=== PATIENT | female | born 1965 | race Caucasian/White ===

== ENCOUNTER → 2018-02-14 | Outpatient (CLI) | payer OTHER ==
[~2018-02-14] MED LIST: REGADENOSON 0.4 MG/5 ML SYR IV ONE
== END ==
LOC: NM 11:03
PROVIDERS: ATTEND Internal Medicine Cardiovascular Disease
DX: R07.9 Chest pain, unspecified (principal)
CPT/HCPCS: 78452; A9502; 93017

== ENCOUNTER 2019-05-22 07:25 | Observation (INO) | payer OTHER ==
--- NOTE | 2019-05-21 14:02 | Diagnostic Imaging Report ---
Chest, 2 views, 05/21/2019. History: Preop, cervical spine surgery. Comparison: None available. Findings: The cardiomediastinal silhouette and pulmonary vasculature are within normal limits. The lungs are clear without evidence of consolidation or pleural effusion. Degenerative changes are noted in the thoracic spine. There are no acute osseous or soft tissue abnormalities. Impression: No acute cardiopulmonary abnormality. Signed by: Robert Bazan on 05/21/2019 1:59 PM
[2019-05-21 14:17] LABS: BASOPHILS % 0.3 % (0.0-1.0); EOSINOPHILS # (AUTO) 0.1 (0.0-0.4); EOSINOPHILS % 1.2 % (0.0-6.0); HEMATOCRIT 47.9 % (34.2-44.1); HEMOGLOBIN 15.4 g/dL (12.0-16.0); INR 0.85; LYMPHOCYTES # (AUTO) 2.5 (1.0-3.2); LYMPHOCYTES % 23.3 % (18.0-39.1); MEAN CORPUSCULAR HEMOGLOBIN 30.9 pg (28-32); MEAN CORPUSCULAR HGB CONC 32.2 g/dL (31-35); MONOCYTES # (AUTO) 0.6 (0.2-0.8); MONOCYTES % 5.4 % (4.4-11.3); NEUTROPHILS # (AUTO) 7.5 (2.1-6.9); NEUTROPHILS % 69.3 % (38.7-80.0); PARTIAL THROMBOPLASTIN TIME 23.5 seconds (23.8-35.5); PLATELET COUNT 226 x10e3/uL (140-360); PROTHROMBIN TIME 12.1 seconds (11.9-14.5); RED BLOOD COUNT 4.99 x10e6/uL (3.6-5.1); RED CELL DISTRIBUTION WIDTH 13.3 % (11.7-14.4)
[2019-05-21 14:22] LABS: BLOOD UREA NITROGEN 12 mg/dL (7-26); BUN/CREATININE RATIO 15 (6-25); CARBON DIOXIDE 28 mmol/L (22-29); CHLORIDE 99 mmol/L (98-107); CREATININE, SERUM 0.78 mg/dL (0.57-1.11); EST GLOMERULAR FILTRATION RATE > 60 ML/MIN (60-); GLUCOSE 255 mg/dL (74-118); SODIUM 137 mmol/L (136-145)
[~2019-05-22] VITALS: Ht 160 cm; Wt 116.7 kg
[~2019-05-22 07:25] MED LIST changes: +ETODOLAC500 M1 PO; +GLIMEPIRIDE2 MG PO; +MICARDIS40 MG PO; +PANTOPRAZOLE SO40 MG PO; -REGADENOSON 0.4 MG/5 ML SYR IV ONE; +TYLENOL WITH C1 EACH PO; +ULTRACET TABLE1 EACH PO; +ZOFRAN4 MG SL
[2019-05-22] MEDS ORDERED: THROMBIN FOR SOLN 5,000 UNIT VIAL ONE (07:50)
[2019-05-22] MEDS ORDERED: BUPIVACAINE 0.5%/EPI 30 ML SDV INJ ONE (07:50)
[2019-05-22] MEDS ORDERED: BACITRACIN 50,000 UNIT VIAL ONE (07:51)
[2019-05-22] MEDS ORDERED: VANCOMYCIN 1GM/NS 250 ML 250 ML ONE (08:07)
[2019-05-22] MEDS ORDERED: IBUPROFEN 800MG/ 250ML 250 ML IV ONE (09:23)
[2019-05-22] MEDS ORDERED: SUGAMMADEX SODIUM 200 MG/2 ML VIAL IV ONE (10:43)
[2019-05-22] MEDS ORDERED: VANCOMYCIN 1GM/NS 250 ML 250 ML IV SCH (11:00)
[2019-05-22] MEDS ORDERED: PROMETHAZINE HCL (IM) 25 MG/ML VIAL IM PRN (11:00)
[2019-05-22] MEDS ORDERED: ACETAMINOPHEN 325 MG TAB PO PRN (11:00)
[2019-05-22] MEDS ORDERED: TRAMADOL/APAP 37.5MG-325MG TAB PO PRN (11:00)
[2019-05-22] MEDS ORDERED: HYDROMORPHONE 2MG/ML 2 MG/ML ML IV PRN (11:00)
[2019-05-22] MEDS ORDERED: MORPHINE SULFATE 5 MG/ML VIAL IM PRN (11:00)
[2019-05-22] MEDS ORDERED: CEPACOL SORE THROAT LOZENGES PO PRN (11:00)
[2019-05-22] MEDS ORDERED: CARISOPRODOL 350 MG TAB PO PRN (11:00)
[2019-05-22] MEDS ORDERED: MAGNESIUM/ALUMINUM/SIMETHICONE 30 ML UDC PO PRN (11:00)
[2019-05-22] MEDS ORDERED: ONDANSETRON HCL INJ 2MG/ML 2ML 2 MG/ML VIAL IV PRN (11:00)
[2019-05-22] MEDS ORDERED: MEPERIDINE HCL INJ 25 MG/ML VIAL ONE (11:14)
[2019-05-22] MEDS ORDERED: FENTANYL CITRATE/PF 100MCG/2 ML INJ ONE ×2 (11:14→18:14)
--- NOTE | 2019-05-22 12:00 | NUR ---
PT TO THE FLOOR FROM PACU. VITALS WNL. PT DENIES NEEDS AT THIS TIME.
[2019-05-22 12:30] VITALS: BP 126/55
[2019-05-22] MEDS: LACTATED RINGER'S 1,000 ML IV SCH ×2 (12:38→18:34)
[2019-05-22] MEDS: PANTOPRAZOLE SOD 40 MG TABEC PO SCH (14:37)
[2019-05-22 15:04] VITALS: BP 148/94
[2019-05-22] MEDS ORDERED: LIDOCAINE HCL 2% LOCAL INJ 5 ML SDV VIAL INJ ONE (17:59)
[2019-05-22] MEDS ORDERED: ROCURONIUM BROMIDE 10 MG/ML 5ML VIAL ONE (17:59)
[2019-05-22] MEDS ORDERED: SEVOFLURANE INHAL SOLN 250 ML PEN BTL ONE (17:59)
[2019-05-22] MEDS ORDERED: DEXAMETHASONE SOD PHOS INJ 4 MG/ML VIAL ONE (17:59)
[2019-05-22] MEDS ORDERED: GLYCOPYRROLATE INJ 0.2 MG/ML VIAL ONE (17:59)
[2019-05-22] MEDS ORDERED: NEOSTIGMINE 1 MG/ML 10ML VIAL ONE (17:59)
[2019-05-22] MEDS ORDERED: PROPOFOL IV EMULSION 10 MG/ML 20 ML VIAL ONE (17:59)
[2019-05-22] MEDS ORDERED: ONDANSETRON HCL INJ 2MG/ML 2ML 2 MG/ML VIAL ONE (17:59)
--- NOTE | 2019-05-22 18:06 | Operative Report ---
DATE OF PROCEDURE: 05/22/2019 SURGEON: Aldo Reed MD PREOPERATIVE DIAGNOSES: C5-6 and C6-C7 spondylosis with radiculopathy, M50.120. POSTOPERATIVE DIAGNOSES: C5-6 and C6-C7 spondylosis with radiculopathy, M50.120. PROCEDURES: 1. C5-6 anterior cervical diskectomy and microsurgical osteophyte resection and allograft fusion, 59809. 2. C6-7 anterior cervical diskectomy and microsurgical osteophyte resection, allograft fusion, 38298. 3. Preparation of tricortical iliac crest allograft, 02132. 4. C5-6 and C6-7 plating with Synthes CSLP plate, [id number]. ANESTHESIA: General. INDICATIONS: The patient is a 53-year-old woman, who presents with C5-6 and C6-7 spondylosis with neck pain and left-sided cervical radiculopathy. She was taken to the surgery for 2-level anterior cervical decompression and fusion. PROCEDURE IN DETAIL: After induction of general anesthesia, the patient was placed on the operating table in supine position. The right side of the neck was prepped and draped in sterile fashion. The fluoroscopic C-arm was positioned in cross-table lateral orientation. A transverse incision was created on the right side of neck superimposed on the C5-6 disk space as determined by fluoroscopy. The platysma was divided in line with the incision. A subplatysmal dissection was carried out and avascular plane of dissection was developed medial to the sternocleidomastoid muscle, and was followed medial to the carotid sheath to the anterior border of the cervical spine. The deep cervical fascia was opened. The esophagus was retracted to the left. The attachments of longus colli muscles to the anterolateral aspects of vertebral bodies of C5, C6, and C7 were divided. The anterior longitudinal ligament was resected. Enterprise posts were inserted into C5 and C7. The Enterprise distractor was used to distract both disk spaces simultaneously. The anterior annuli of disks were incised with a #11 blade. The contents of both disks were thoroughly evacuated with curettes and pituitary rongeurs. The posterior osteophytes were meticulously drilled with a 2 mm cutting bur on a high-speed drill until they were completely removed. The posterior annulus of the disk, herniated disk material, and the posterior longitudinal ligament were resected layer by layer until the dura was fully exposed and decompressed. The medial aspects of the uncinate processes were resected bilaterally to further expose any compressed origins of the corresponding nerve roots. After satisfactory decompression had been achieved, the endplates were prepared for fusion. Two pieces of tricortical iliac crest allograft were cut to size and shapes of the disk spaces and were inserted into disk spaces under distraction and fluoroscopic guidance. The distraction was released and distraction posts were removed. A Synthes CSLP variable type anterior cervical plate was then selected and affixed to the vertebral bodies of C5, C6, and C7 with 3 pairs of 14 x 4.35 mm screws. Each screw holes were first drilled and tapped on the lateral fluoroscopic guidance. Each screw was locked with the appropriate locking screws and excellent construct was obtained. The wound was copiously irrigated with bacitracin solution. Meticulous hemostasis was secured. The retractor was removed. The platysma was closed with 3-0 Vicryl sutures. The skin was closed with 4-0 Monocryl sutures in subcuticular fashion. Steri-Strips and dressing were applied. The patient was awakened, extubated, and taken to postanesthesia care unit in stable condition. No intraoperative complications were encountered. Estimated blood loss was 20 mL. Aldo Reed MD PP/CARMEL /[id number]
[2019-05-22] MEDS ORDERED: MIDAZOLAM HCL 2 MG/2 ML VIAL ONE (18:14)
[2019-05-22] MEDS: OXYCODONE/ACETAMINOPHEN 5-325 1 EACH TABLET PO PRN (18:44)
[2019-05-22 20:00] VITALS: BP 152/73
[2019-05-22] MEDS: VANCOMYCIN 1GM/NS 250 ML 250 ML IV SCH (20:45)
[2019-05-22] MEDS ORDERED: TELMISARTAN 40 MG TAB PO SCH (21:00)
[2019-05-22] MEDS ORDERED: ZOLPIDEM TARTRATE 5 MG TAB PO PRN (21:00)
[2019-05-22 23:42] VITALS: BP 130/60
[2019-05-23] MEDS: OXYCODONE/ACETAMINOPHEN 5-325 1 EACH TABLET PO PRN (02:24)
[2019-05-23] MEDS: LACTATED RINGER'S 1,000 ML IV SCH (03:30)
[2019-05-23 04:00] VITALS: BP 141/76
--- NOTE | 2019-05-23 07:00 | NUR ---
RECEIVED BEDSIDE REPORT FROM SAGGER SOAK RN. PT DENIES NEEDS AT THIS TIME.
[2019-05-23 07:39] VITALS: BP 118/59
[2019-05-23 08:00] VITALS: BP 118/59
[2019-05-23] MEDS ORDERED: GLIMEPIRIDE 2 MG TAB PO SCH (08:00)
[2019-05-23] MEDS: VANCOMYCIN 1GM/NS 250 ML 250 ML IV SCH (08:58)
[2019-05-23] MEDS: PANTOPRAZOLE SOD 40 MG TABEC PO SCH (08:58)
[2019-05-23] MEDS ORDERED: NORCO 7.5-3251 EACH PO (10:33)
== END 2019-05-23 11:40 | disposition home or self-care (01) ==
LOC: OR 07:25 → PACU V 10:52 → IMCU 11:59
PROVIDERS: ADMIT Neurological Surgery; ATTEND Neurological Surgery
DX: M47.22 Other spondylosis with radiculopathy, cervical region (principal); Z88.1 Allergy status to other antibiotic agents; Z88.5 Allergy status to narcotic agent; Z88.0 Allergy status to penicillin; M19.90 Unspecified osteoarthritis, unspecified site; I10 Essential (primary) hypertension; J45.909 Unspecified asthma, uncomplicated; R12 Heartburn; E66.9 Obesity, unspecified; Z68.42 Body mass index [BMI] 45.0-49.9, adult; Z86.711 Personal history of pulmonary embolism; F17.210 Nicotine dependence, cigarettes, uncomplicated; E11.9 Type 2 diabetes mellitus without complications; Z79.84 Long term (current) use of oral hypoglycemic drugs
CPT/HCPCS: 20931; 22551; 22552; 22845; 36415 ×2; 71046; 77003; 80048; 82948; 85025; 85610; 85730; 86850; 86900; 88304; 93005; C1713 ×4; C1768; G0378 ×2; J1100; J2001; J2175; J2250; J2405; J2704; J2710; J3010; J3370 ×2; J7121; S0164 ×2

== ENCOUNTER → 2020-01-14 | Outpatient (CLI) | payer OTHER ==
[~2020-01-14] MED LIST changes: +NORCO 7.5-3251 EACH PO
--- NOTE | 2020-01-14 13:16 | Diagnostic Imaging Report ---
EXAM: SPINE CERVICAL AP LAT FLEX EXT DATE: 01/14/2020 12:38 PM INDICATION: Cervical disc herniation COMPARISON: 06/19/2019 FINDINGS: Again identified are stable postsurgical changes from anterior cervical fusion and discectomy from C5 through C7. Hardware appears intact and in stable position. There is no evidence for acute fracture or dislocation. There is stable mild straightening of the normal cervical lordosis on the neutral view and reversal on flexion views. The prevertebral soft tissues are unremarkable. The visual as lung apices are clear. IMPRESSION: Stable post surgical changes from cervical fusion at C5-C7. No acute radiographic abnormality identified within the cervical spine. Signed by: Dr. Ruben Jameson MD on 01/14/2020 1:13 PM
== END ==
LOC: RAD 12:27
PROVIDERS: ATTEND Neurological Surgery
DX: M50.20 Other cervical disc displacement, unspecified cervical region (principal); M43.22 Fusion of spine, cervical region
CPT/HCPCS: 72050

== ENCOUNTER → 2020-07-13 | Outpatient (CLI) | payer OTHER | LOC: RAD 12:20 | PROVIDERS: ATTEND Neurological Surgery | DX: M50.20 Other cervical disc displacement, unspecified cervical region (principal); M43.22 Fusion of spine, cervical region | CPT/HCPCS: 72050 ==

== ENCOUNTER 2022-07-22 23:00 | Emergency (ER) | payer MEDICARE, OTHER ==
[~2022-07-22] VITALS: Ht 160 cm; Wt 99.8 kg
[2022-07-22] MEDS ORDERED: ONDANSETRON HCL INJ 2MG/ML 2ML 2 MG/ML VIAL IV STA (23:04)
[2022-07-22 23:29] LABS: BASOPHILS # (AUTO) 0.1 (0.0-0.1); BASOPHILS % 0.5 % (0.0-1.0); EOSINOPHILS # (AUTO) 0.2 (0.0-0.4); EOSINOPHILS % 1.1 % (0.0-6.0); HEMATOCRIT 58.5 % (34.2-44.1); LYMPHOCYTES # (AUTO) 3.7 (1.0-3.2); LYMPHOCYTES % 27.7 % (18.0-39.1); MEAN CORPUSCULAR HEMOGLOBIN 32.1 pg (28-32); MEAN CORPUSCULAR HGB CONC 30.8 g/dL (31-35); MEAN CORPUSCULAR VOLUME 104.3 fL (81-99); MONOCYTES # (AUTO) 1.1 (0.2-0.8); NEUTROPHILS # (AUTO) 8.3 (2.1-6.9); NEUTROPHILS % 62.4 % (38.7-80.0); PLATELET COUNT 172 x10e3/uL (140-360); RED BLOOD COUNT 5.61 x10e6/uL (3.6-5.1); RED CELL DISTRIBUTION WIDTH 13.1 % (11.7-14.4)
[2022-07-22 23:36] LABS: CLARITY,URINE CLOUDY (CLEAR); COLOR,URINE YELLOW (YELLOW); KETONES,URINE NEGATIVE (NEGATIVE); LEUKOCYTE ESTERASE ,URINE TRACE (NEGATIVE); NITRITE,URINE NEGATIVE (NEGATIVE); PROTEIN,URINE DIPSTICK 2+ (NEGATIVE)
[2022-07-22 23:37] LABS: URINE UROBILINOGEN 0.2 mg/dL (0.2 - 1)
[2022-07-22] MEDS ORDERED: SODIUM CHLORIDE 0.9% 1000ML 1,000 ML IV ONE (23:45)
[2022-07-22 23:47] LABS: ALBUMIN 3.4 g/dL (3.5-5.0); ALBUMIN/GLOBULIN RATIO 0.9 (0.8-2.0); ANION GAP 18.2 mmol/L (8-16); CALCIUM 9.5 mg/dL (8.4-10.2); CREATININE, SERUM 1.36 mg/dL (0.57-1.11); POTASSIUM 4.2 mmol/L (3.5-5.1)
[2022-07-22 23:54] LABS: CREATINE KINASE MB 3.5 ng/mL (0-5.0)
[2022-07-23 00:02] LABS: BACTERIA,URINE MANY /HPF; EPITHELIAL CELLS,URINE MANY /LPF; RBC,URINE 21-50 /HPF (0-5); RENAL EPITHELIAL CELLS,URINE FEW; TRANSITIONAL EPI CELLS,URINE MANY; WBC,URINE (MAN) 21-50 /HPF (0-5); YEAST,URINE MANY
[2022-07-23] MEDS ORDERED: CEFTRIAXONE 1 GM VIAL ONE (00:28)
[2022-07-23] MEDS ORDERED: IOPAMIDOL 370 MG/ML 100 ML INFUS..BTL INJ ONE (00:32)
[2022-07-23 00:39] LABS: INR 1.09; PROTHROMBIN TIME 14.3 seconds (11.9-14.5)
[2022-07-23 00:40] LABS: PARTIAL THROMBOPLASTIN TIME 29.2 seconds (23.8-35.5)
[2022-07-23] MEDS ORDERED: HEPARIN SOD (PORCINE) 5,000 UNIT/ML VIAL IV ONE ×2 (00:45→01:15)
[2022-07-23] MEDS ORDERED: HEPARIN 25,000 UNIT 1,400 UNIT in DEXTROSE 5% 250ML 250 ML IV SCH (00:45)
[2022-07-23] MEDS ORDERED: HEPARIN SOD (PORCINE) 5,000 UNIT/ML VIAL ONE (01:01)
[2022-07-23] MEDS ORDERED: HEPARIN 25,000 UNIT DRIP IV ONE (01:01)
[2022-07-23] MEDS ORDERED: HEPARIN 25,000 UNIT 1,300 UNIT in DEXTROSE 5% 250ML 250 ML IV SCH (01:15)
[2022-07-23 04:12] VITALS: BP 121/72
[2022-07-23] MEDS ORDERED: ONDANSETRON HCL INJ 2MG/ML 2ML 2 MG/ML VIAL IV STA (04:50)
[2022-07-23] MEDS ORDERED: ONDANSETRON HCL INJ 2MG/ML 2ML 2 MG/ML VIAL ONE (05:04)
== END 2022-07-23 04:54 | disposition other institution (70) ==
LOC: ER 23:10
DX: R06.00 Dyspnea, unspecified (principal); I26.99 Other pulmonary embolism without acute cor pulmonale; R11.2 Nausea with vomiting, unspecified; N39.0 Urinary tract infection, site not specified; E86.0 Dehydration; R73.9 Hyperglycemia, unspecified; I10 Essential (primary) hypertension; Z20.822 Contact with and (suspected) exposure to COVID-19; R94.31 Abnormal electrocardiogram [ECG] [EKG]; F17.210 Nicotine dependence, cigarettes, uncomplicated
CPT/HCPCS: 36415; 71045; 71260; 74019; 80053; 81001; 82550; 82553; 83605; 83690; 83880; 84484; 85025; 85610; 85730; 87040; 87086; 93005; 99285; C9113; J0696; J1644; J2405 ×2; J7030; Q9967; U0002

== ENCOUNTER → 2024-08-18 | Day surgery (SDC) | payer MEDICARE ==
[2024-08-13 16:09] LABS: BASOPHILS % 0.2 % (0.0-1.0); EOSINOPHILS # (AUTO) 0.2 (0.0-0.4); EOSINOPHILS % 1.7 % (0.0-6.0); HEMATOCRIT 48.9 % (34.2-44.1); HEMOGLOBIN 16.3 g/dL (12.0-16.0); LYMPHOCYTES # (AUTO) 2.7 (1.0-3.2); LYMPHOCYTES % 26.5 % (18.0-39.1); MEAN CORPUSCULAR HEMOGLOBIN 30.6 pg (28-32); MEAN CORPUSCULAR HGB CONC 33.3 g/dL (31-35); MEAN CORPUSCULAR VOLUME 91.9 fL (81-99); MONOCYTES # (AUTO) 0.7 (0.2-0.8); NEUTROPHILS # (AUTO) 6.5 (2.1-6.9); NEUTROPHILS % 64.2 % (38.7-80.0); PLATELET COUNT 189 x10e3/uL (140-360); RED BLOOD COUNT 5.32 x10e6/uL (3.6-5.1); RED CELL DISTRIBUTION WIDTH 13.1 % (11.7-14.4); WHITE BLOOD COUNT 10.05 x10e3/uL (4.8-10.8)
[~2024-08-18] MED LIST changes: +CYMBALTA20 MG PO; +ELIQUIS5 MG PO; +FARXIGA5 MG PO; +GLYCOPYRROLATE INJ 0.2 MG/ML VIAL ONE; +HYOSCYAMINE SULFATE 0.5 MG/ML INJ ONE; +KETAMINE 50MG/5ML SYR ONE; +LIDOCAINE HCL 2% LOCAL INJ 5 ML SDV VIAL INJ ONE; +LOVENOX120 MG/0.8 SC; +NOREPINEPHRINE 8 MG/D5W 250 ML 250 ML ONE; +OZEMPIC2 MG/0.75 SQ; +PHENYLEPHRINE HCL 1% 10 MG/ML VIAL ONE; +PROPOFOL IV EMULSION 10 MG/ML 20 ML VIAL ONE; +PROPOFOL IV EMULSION 50 ML IV ONE; +SODIUM CHLORIDE 0.9% 100 ML ONE; +TOUJEO SOL300 UNIT/1 SQ
[2024-08-18] MEDS: LACTATED RINGER'S 1,000 ML ONE (06:09)
[2024-08-18 08:56] VITALS: TEMP 97.2
[2024-08-18 09:25] VITALS: BP 112/61; PULSE 80; RESP 16; O2SAT 96
== END | disposition home or self-care (01) ==
LOC: OR 05:44
PROVIDERS: ATTEND Internal Medicine Gastroenterology
DX: K29.50 Unspecified chronic gastritis without bleeding (principal); D12.4 Benign neoplasm of descending colon; D12.0 Benign neoplasm of cecum; D12.2 Benign neoplasm of ascending colon; D12.3 Benign neoplasm of transverse colon; K31.7 Polyp of stomach and duodenum; B37.81 Candidal esophagitis; K44.9 Diaphragmatic hernia without obstruction or gangrene; R19.5 Other fecal abnormalities; K62.5 Hemorrhage of anus and rectum; K21.9 Gastro-esophageal reflux disease without esophagitis; K57.30 Diverticulosis of large intestine without perforation or abscess without bleeding; K64.8 Other hemorrhoids; E11.9 Type 2 diabetes mellitus without complications; I10 Essential (primary) hypertension; J45.909 Unspecified asthma, uncomplicated; E66.01 Morbid (severe) obesity due to excess calories; M06.9 Rheumatoid arthritis, unspecified; M19.90 Unspecified osteoarthritis, unspecified site; M54.9 Dorsalgia, unspecified; D68.9 Coagulation defect, unspecified; N28.9 Disorder of kidney and ureter, unspecified; Z72.0 Tobacco use; Z88.6 Allergy status to analgesic agent; Z88.1 Allergy status to other antibiotic agents; Z88.0 Allergy status to penicillin; Z01.810 Encounter for preprocedural cardiovascular examination; Z01.812 Encounter for preprocedural laboratory examination; Z79.02 Long term (current) use of antithrombotics/antiplatelets; Z79.84 Long term (current) use of oral hypoglycemic drugs; Z79.85 Long-term (current) use of injectable non-insulin antidiabetic drugs; Z79.4 Long term (current) use of insulin; Z86.718 Personal history of other venous thrombosis and embolism; Z87.19 Personal history of other diseases of the digestive system
CPT/HCPCS: 36415; 43239; 45385; 85025; 93005; J1980; J2003; J2371; J2470; J2704 ×2; J7050; J7121; 45378